=== PATIENT | female | born 1945 | race Asian ===

== ENCOUNTER → 2017-09-13 | Outpatient (CLI) | payer OTHER ==
[~2017-09-13] MED LIST: REGADENOSON 0.4 MG/5 ML SYRINGE ONE
== END | disposition home or self-care (01) ==
LOC: RAD 12:37
PROVIDERS: ATTEND Internal Medicine Cardiovascular Disease
DX: R06.02 Shortness of breath (principal)
CPT/HCPCS: 78452; 93017; A9502; J2785

== ENCOUNTER 2019-05-05 19:04 | Inpatient (IN) | payer OTHER ==
[~2019-05-05] VITALS: Ht 144.8 cm; Wt 60.5 kg
--- NOTE | 2019-05-05 19:44 | NUR ---
PT WENT TO [facility] IN [facility] X1 MONTH, PT WAS SENT HERE TO [facility] FOR POSSIBLE DVT. PER PT, NO TESTING WAS DONE. RASHES ON BILAT HEALS THAT ARE ITCHY AND SHE SCRATCHES THEM AND BECOMES OPEN AREAS. COVERED WOUNDS, DRESSING CDI. CONNECTED TO ALL MONITORING. CALL LIGHT IN REACH. DAUGHTER AT BEDSIDE.
--- NOTE | 2019-05-05 21:25 | NUR ---
ALL RESULTS ARE BACK AT THIS TIME. CHART UP FOR RECHECK.
[2019-05-05] MEDS ORDERED: hydrOXyzine 50MG TABLET ONE (21:50)
[2019-05-05] MEDS ORDERED: ONDANSETRON 2MG/ML, 2ML IVPush ONE (21:50)
[2019-05-05] MEDS ORDERED: ONDANSETRON 2MG/ML, 2ML ONE (21:51)
[2019-05-05] MEDS ORDERED: HYDROmorphone 1 MG/ML, 1ML VIAL ONE (21:51)
[2019-05-05] MEDS ORDERED: AMPICILLIN/SULBACTAM 3 GM in SODIUM CHLORIDE 0.9% 100 ML IV ONE (21:56)
--- NOTE | 2019-05-05 21:59 | NUR ---
PT MEDICATED PER EMAR, PT PLACED ON OXYGEN TO PREVENT HYPOXIA WITH PAIN MEDICINE ADMINISTRATION.
[2019-05-05] MEDS ORDERED: HYDROmorphone 1 MG/ML, 1ML INJ IV ONE (22:00)
[2019-05-05] MEDS ORDERED: hydrOXyzine 50MG TABLET PO ONE (22:00)
--- NOTE | 2019-05-05 22:13 | NUR ---
BLOOD CX DRAWN PRIOR TO ABX START. ABX ADMIN PER SEP.
--- NOTE | 2019-05-05 22:16 | NUR ---
BLOOD CULTURES X 2 DRAWN BY THIS RN. VENOUS LACTATE REQUESTED FROM PROVIDER. PROVIDER AGGREABLE TO THIS. PT HAD PERIPHERAL STICKS X 2 AT THIS TIME. PT REPORTING PAIN ONLY SLIGHTLY BETTER. ABX TO BE STARTED AFTER CULTURES.
[2019-05-05 22:26] LABS: MEAN CORPUSCULAR HEMOGLOBIN 39.6 pg (27.0-34.8); MEAN CORPUSCULAR HGB CONC 33.2 g/dL (32.4-35.8); MEAN PLATELET VOLUME 6.7 fL (7.4-10.4); PLATELET COUNT 465 x10^3/uL (130-400); RED BLOOD COUNT 3.34 x10^6/uL (3.82-5.3); RED CELL DISTRIBUTION WIDTH 13.9 % (9.6-15.2)
--- NOTE | 2019-05-05 22:27 | NUR ---
REPORT GIVEN TO ARNOLD CHÁVEZ
[2019-05-05 22:36] LABS: ALBUMIN 3.3 g/dL (3.4-5.0); ANION GAP 5 mmol/L (5-15); CALCIUM 9.5 mg/dL (8.5-10.1); CHLORIDE 104 mmol/L (98-107)
[2019-05-05 22:39] LABS: ALANINE AMINOTRANSFERASE 30 U/L (12-78); ALKALINE PHOSPHATASE 56 U/L (45-117); BILIRUBIN,TOTAL 0.6 mg/dL (0.2-1.0); CREATININE 0.95 mg/dL (0.55-1.02); TOTAL PROTEIN 7.8 g/dL (6.4-8.2)
[2019-05-05 22:50] VITALS: BP 125/74
[2019-05-05 22:56] LABS: BASOPHILS # (AUTO) 0.04 x10^3/uL (0-0.1); BASOPHILS % (AUTO) 1 % (0-1); EOSINOPHILS # (AUTO) 0.97 x10^3/uL (0-0.4); EOSINOPHILS % (AUTO) 11 % (1-7); LYMPHOCYTES # (AUTO) 1.33 x10^3/uL (1-3.4); LYMPHOCYTES % (AUTO) 15 % (22-44); MD SCAN; MONOCYTES # (AUTO) 0.65 x10^3/uL (0.2-0.8); MONOCYTES % (AUTO) 8 % (2-9); NEUTROPHILS # (AUTO) 5.72 x10^3/uL (1.8-6.8); NEUTROPHILS % (AUTO) 66 % (42-75)
[2019-05-05] MEDS ORDERED: ALEN70TA6 PO (23:56)
[2019-05-05] MEDS ORDERED: AMLO5TAB4 PO (23:56)
[2019-05-05] MEDS ORDERED: CLOP75TA52 PO (23:56)
[2019-05-05] MEDS ORDERED: ROSU5TAB12 PO (23:56)
[2019-05-05] MEDS ORDERED: HYDR500C PO (23:56)
[2019-05-06] MEDS ORDERED: DOCUSATE 100 MG CAPSULE PO PRN (00:30)
[2019-05-06] MEDS ORDERED: ONDANSETRON ODT 4 MG PO PRN (00:30)
[2019-05-06] MEDS ORDERED: LIDODERM 5% PATCH TD PRN (00:30)
[2019-05-06] MEDS ORDERED: morphine SULFATE 10 MG/ML, 1ML IVPush PRN (00:30)
[2019-05-06] MEDS ORDERED: GABAPENTIN 300 MG CAPSULE PO PRN (00:30)
[2019-05-06] MEDS ORDERED: ENALAPRILAT 1.25 MG/ML, 2ML IVPush PRN (00:30)
[2019-05-06] MEDS ORDERED: MELATONIN 3 MG TABLET PO PRN (00:30)
[2019-05-06 01:09] VITALS: BP 127/73
[2019-05-06] MEDS: ENOXAPARIN 40 MG/0.4 ML SQ SCH (01:12)
[2019-05-06] MEDS ORDERED: DIPHENHYDRAMINE 50 MG/ML, 1ML IVPush ONE ×2 (04:30→09:00)
[2019-05-06] MEDS: AMPICILLIN/SULBACTAM 3 GM in SODIUM CHLORIDE 0.9% 100 ML IV SCH ×4 (05:05→23:22)
[2019-05-06 07:07] VITALS: BP 116/71
[2019-05-06] MEDS ORDERED: CHOL200059 PO (11:15)
[2019-05-06 13:29] VITALS: BP 109/68
[2019-05-06] MEDS: GABAPENTIN 300 MG CAPSULE PO PRN (16:56)
[2019-05-06] MEDS: ATORVASTATIN 20 MG TABLET PO SCH (20:12)
[2019-05-06 20:18] VITALS: BP 125/74
[2019-05-07] MEDS: GABAPENTIN 300 MG CAPSULE PO PRN ×3 (01:08→16:24)
[2019-05-07] MEDS: ENOXAPARIN 40 MG/0.4 ML SQ SCH (01:09)
[2019-05-07 01:36] VITALS: BP 116/68
[2019-05-07] MEDS: AMPICILLIN/SULBACTAM 3 GM in SODIUM CHLORIDE 0.9% 100 ML IV SCH ×4 (05:24→23:17)
[2019-05-07 07:08] LABS: MEAN CORPUSCULAR HEMOGLOBIN 38.9 pg (27.0-34.8); MEAN CORPUSCULAR HGB CONC 32.5 g/dL (32.4-35.8); MEAN CORPUSCULAR VOLUME 119.7 fL (80-100); MEAN PLATELET VOLUME 6.3 fL (7.4-10.4); PLATELET COUNT 482 x10^3/uL (130-400); RED BLOOD COUNT 3.33 x10^6/uL (3.82-5.3); RED CELL DISTRIBUTION WIDTH 13.8 % (9.6-15.2)
[2019-05-07 07:17] LABS: ANION GAP 4 mmol/L (5-15); CALCIUM 8.3 mg/dL (8.5-10.1); CHLORIDE 107 mmol/L (98-107); CREATININE 0.98 mg/dL (0.55-1.02)
[2019-05-07 07:38] LABS: MD YES
[2019-05-07 07:40] LABS: BASOS#(MANUAL) 0.17 x10^3/uL (0-0.1); BASOS% (MANUAL) 2 % (0-1); EOS#(MANUAL) 1.62 x10^3/uL (0.0-0.4); EOS% (MANUAL) 19 % (1-7); LYMPH#(MANUAL) 0.68 x10^3/uL (1-3.4); LYMPHS% (MANUAL) 8 % (22-44); MONOS#(MANUAL) 0.51 x10^3/uL (0.3-2.7); MONOS% (MANUAL) 6 % (2-9); SEG#(MANUAL) 5.53 x10^3/uL (1.8-6.8); SEGS% (MANUAL) 65 % (42-75)
[2019-05-07 07:41] LABS: <PLATELET ESTIMATE> INCREASED; <PLT MORPHOLOGY> NORMAL PLT MORPH
[2019-05-07 08:00] VITALS: BP 121/79
[2019-05-07] MEDS ORDERED: GADOTERATE 7.5 MMOL/15 ML SYR ONE (08:00)
[2019-05-07] MEDS: CHOLECALCIFEROL 1,000 UNIT TABLET PO SCH (09:54)
[2019-05-07] MEDS: CLOPIDOGREL 75 MG TABLET PO SCH (09:54)
[2019-05-07] MEDS: AMLODIPINE 5 MG TABLET PO SCH (09:54)
[2019-05-07] MEDS: HYDROXYUREA 500 MG CAPSULE PO SCH (10:00)
[2019-05-07 13:52] VITALS: BP 117/77
[2019-05-07 14:12] VITALS: BP 122/69
[2019-05-07] MEDS: ACETAMINOPHEN 325 MG TABLET PO PRN (14:26)
[2019-05-07 19:27] VITALS: BP 130/75
[2019-05-07] MEDS: KETOROLAC 30 MG/1 ML IVPush PRN (20:40)
[2019-05-07] MEDS: ATORVASTATIN 20 MG TABLET PO SCH (20:52)
[2019-05-08 00:48] VITALS: BP 117/73
[2019-05-08] MEDS: ENOXAPARIN 40 MG/0.4 ML SQ SCH (01:10)
[2019-05-08] MEDS: GABAPENTIN 300 MG CAPSULE PO PRN ×3 (01:16→18:08)
[2019-05-08 04:47] LABS: ANION GAP 3 mmol/L (5-15); CALCIUM 7.9 mg/dL (8.5-10.1); CHLORIDE 110 mmol/L (98-107); CREATININE 1.28 mg/dL (0.55-1.02)
[2019-05-08 04:59] LABS: MEAN CORPUSCULAR HEMOGLOBIN 38.8 pg (27.0-34.8); MEAN CORPUSCULAR HGB CONC 32.3 g/dL (32.4-35.8); MEAN CORPUSCULAR VOLUME 120.2 fL (80-100); MEAN PLATELET VOLUME 6.7 fL (7.4-10.4); PLATELET COUNT 457 x10^3/uL (130-400); RED BLOOD COUNT 3.24 x10^6/uL (3.82-5.3); RED CELL DISTRIBUTION WIDTH 13.6 % (9.6-15.2)
[2019-05-08] MEDS: AMPICILLIN/SULBACTAM 3 GM in SODIUM CHLORIDE 0.9% 100 ML IV SCH ×3 (05:20→23:06)
[2019-05-08 05:59] LABS: BASOPHILS # (AUTO) 0.05 x10^3/uL (0-0.1); BASOPHILS % (AUTO) 1 % (0-1); EOSINOPHILS # (AUTO) 1.32 x10^3/uL (0-0.4); EOSINOPHILS % (AUTO) 18 % (1-7); LYMPHOCYTES # (AUTO) 1.12 x10^3/uL (1-3.4); LYMPHOCYTES % (AUTO) 16 % (22-44); MD SCAN; MONOCYTES # (AUTO) 0.54 x10^3/uL (0.2-0.8); MONOCYTES % (AUTO) 8 % (2-9); NEUTROPHILS # (AUTO) 4.17 x10^3/uL (1.8-6.8); NEUTROPHILS % (AUTO) 58 % (42-75)
[2019-05-08 07:37] VITALS: BP 115/52
[2019-05-08] MEDS: HYDROXYUREA 500 MG CAPSULE PO SCH (09:23)
[2019-05-08] MEDS: HYDROCORTISONE CRM 1%, 30GM TP PRN ×3 (09:24→23:23)
[2019-05-08] MEDS: CHOLECALCIFEROL 1,000 UNIT TABLET PO SCH (09:24)
[2019-05-08] MEDS: CLOPIDOGREL 75 MG TABLET PO SCH (09:24)
[2019-05-08] MEDS: DIPHENHYDRAMINE/ZINC CRM 2%, 30GM TP PRN ×3 (09:24→23:23)
[2019-05-08] MEDS: AMLODIPINE 5 MG TABLET PO SCH (09:24)
[2019-05-08 13:02] VITALS: BP 119/45
[2019-05-08] MEDS: LINEZOLID PMX 600MG/300ML 300 ML IV SCH (18:08)
[2019-05-08 18:46] VITALS: BP 120/64
[2019-05-08] MEDS: ACETAMINOPHEN 325 MG TABLET PO PRN (20:28)
[2019-05-08] MEDS: ATORVASTATIN 20 MG TABLET PO SCH (20:28)
[2019-05-09 01:11] VITALS: BP 127/76
[2019-05-09] MEDS: GABAPENTIN 300 MG CAPSULE PO PRN ×2 (01:13→17:33)
[2019-05-09] MEDS: ENOXAPARIN 30 MG/0.3 ML SQ SCH (01:15)
[2019-05-09] MEDS: LINEZOLID PMX 600MG/300ML 300 ML IV SCH (06:02)
[2019-05-09] MEDS: HYDROCORTISONE CRM 1%, 30GM TP PRN ×2 (06:08→20:25)
[2019-05-09] MEDS: DIPHENHYDRAMINE/ZINC CRM 2%, 30GM TP PRN ×2 (06:08→20:25)
[2019-05-09 07:19] VITALS: BP 136/82
[2019-05-09] MEDS: CLOPIDOGREL 75 MG TABLET PO SCH (08:08)
[2019-05-09] MEDS: AMLODIPINE 5 MG TABLET PO SCH (08:08)
[2019-05-09] MEDS: CHOLECALCIFEROL 1,000 UNIT TABLET PO SCH (08:08)
[2019-05-09] MEDS: HYDROXYUREA 500 MG CAPSULE PO SCH (08:08)
[2019-05-09 10:08] LABS: MEAN CORPUSCULAR HEMOGLOBIN 39.1 pg (27.0-34.8); MEAN CORPUSCULAR HGB CONC 32.6 g/dL (32.4-35.8); MEAN CORPUSCULAR VOLUME 119.7 fL (80-100); MEAN PLATELET VOLUME 6.4 fL (7.4-10.4); PLATELET COUNT 506 x10^3/uL (130-400); RED BLOOD COUNT 3.34 x10^6/uL (3.82-5.3); RED CELL DISTRIBUTION WIDTH 13.7 % (9.6-15.2)
[2019-05-09 10:20] LABS: ANION GAP 5 mmol/L (5-15); CALCIUM 8.5 mg/dL (8.5-10.1); CHLORIDE 107 mmol/L (98-107); CREATININE 1.02 mg/dL (0.55-1.02)
[2019-05-09 10:25] LABS: BASOPHILS # (AUTO) 0.01 x10^3/uL (0-0.1); BASOPHILS % (AUTO) 0 % (0-1); EOSINOPHILS # (AUTO) 1.15 x10^3/uL (0-0.4); EOSINOPHILS % (AUTO) 16 % (1-7); LYMPHOCYTES # (AUTO) 0.82 x10^3/uL (1-3.4); LYMPHOCYTES % (AUTO) 11 % (22-44); MD SCAN; MONOCYTES # (AUTO) 0.45 x10^3/uL (0.2-0.8); MONOCYTES % (AUTO) 6 % (2-9); NEUTROPHILS # (AUTO) 4.79 x10^3/uL (1.8-6.8); NEUTROPHILS % (AUTO) 66 % (42-75)
[2019-05-09] MEDS: AMPICILLIN/SULBACTAM 3 GM in SODIUM CHLORIDE 0.9% 100 ML IV SCH ×2 (12:42→20:25)
[2019-05-09 13:06] VITALS: BP 113/63
[2019-05-09] MEDS ORDERED: FUROSEMIDE 40 MG/4 ML IV ONE (17:00)
[2019-05-09 20:12] VITALS: BP 122/72
[2019-05-09] MEDS: ATORVASTATIN 20 MG TABLET PO SCH (20:25)
[2019-05-09] MEDS ORDERED: LINEZOLID 600 MG TABLET PO SCH (21:00)
[2019-05-10 01:07] VITALS: BP 138/72
[2019-05-10] MEDS: AMPICILLIN/SULBACTAM 3 GM in SODIUM CHLORIDE 0.9% 100 ML IV SCH ×3 (04:02→20:25)
[2019-05-10] MEDS: HYDROCORTISONE CRM 1%, 30GM TP PRN ×2 (05:02→20:26)
[2019-05-10] MEDS: KETOROLAC 30 MG/1 ML IVPush PRN (05:08)
[2019-05-10 08:04] VITALS: BP 111/67
[2019-05-10] MEDS: CLOPIDOGREL 75 MG TABLET PO SCH (08:07)
[2019-05-10] MEDS: HYDROXYUREA 500 MG CAPSULE PO SCH (08:07)
[2019-05-10] MEDS: ENOXAPARIN 30 MG/0.3 ML SQ SCH (08:08)
[2019-05-10] MEDS: AMLODIPINE 5 MG TABLET PO SCH (08:08)
[2019-05-10] MEDS: CHOLECALCIFEROL 1,000 UNIT TABLET PO SCH (08:08)
[2019-05-10 12:53] VITALS: BP 101/62
[2019-05-10 18:57] VITALS: BP 129/71
[2019-05-10] MEDS: ATORVASTATIN 20 MG TABLET PO SCH (20:25)
[2019-05-10] MEDS: DIPHENHYDRAMINE/ZINC CRM 2%, 30GM TP PRN (20:26)
[2019-05-11 01:53] VITALS: BP 104/66
[2019-05-11] MEDS: AMPICILLIN/SULBACTAM 3 GM in SODIUM CHLORIDE 0.9% 100 ML IV SCH (04:19)
[2019-05-11 04:47] LABS: MEAN CORPUSCULAR HEMOGLOBIN 39.4 pg (27.0-34.8); MEAN CORPUSCULAR HGB CONC 32.8 g/dL (32.4-35.8); MEAN CORPUSCULAR VOLUME 120.2 fL (80-100); MEAN PLATELET VOLUME 6.9 fL (7.4-10.4); PLATELET COUNT 483 x10^3/uL (130-400); RED BLOOD COUNT 3.21 x10^6/uL (3.82-5.3); RED CELL DISTRIBUTION WIDTH 13.9 % (9.6-15.2)
[2019-05-11 04:58] LABS: ANION GAP 4 mmol/L (5-15); CALCIUM 8.3 mg/dL (8.5-10.1); CHLORIDE 108 mmol/L (98-107)
[2019-05-11 05:00] LABS: CREATININE 1.03 mg/dL (0.55-1.02)
[2019-05-11 06:00] LABS: BASOPHILS # (AUTO) 0.04 x10^3/uL (0-0.1); BASOPHILS % (AUTO) 1 % (0-1); EOSINOPHILS # (AUTO) 1.23 x10^3/uL (0-0.4); EOSINOPHILS % (AUTO) 18 % (1-7); LYMPHOCYTES # (AUTO) 1.09 x10^3/uL (1-3.4); LYMPHOCYTES % (AUTO) 16 % (22-44); MD SCAN; MONOCYTES # (AUTO) 0.59 x10^3/uL (0.2-0.8); MONOCYTES % (AUTO) 9 % (2-9); NEUTROPHILS # (AUTO) 3.73 x10^3/uL (1.8-6.8); NEUTROPHILS % (AUTO) 56 % (42-75)
[2019-05-11] MEDS ORDERED: ENOXAPARIN 40 MG/0.4 ML SQ SCH (06:00)
[2019-05-11 07:16] VITALS: BP 111/66
[2019-05-11] MEDS: HYDROXYUREA 500 MG CAPSULE PO SCH (08:52)
[2019-05-11] MEDS: AMLODIPINE 5 MG TABLET PO SCH (08:55)
[2019-05-11] MEDS: CHOLECALCIFEROL 1,000 UNIT TABLET PO SCH (08:55)
[2019-05-11] MEDS: CLOPIDOGREL 75 MG TABLET PO SCH (08:55)
[2019-05-11] MEDS: HYDROCORTISONE CRM 1%, 30GM TP PRN (08:56)
[2019-05-11] MEDS: DIPHENHYDRAMINE/ZINC CRM 2%, 30GM TP PRN (08:56)
[2019-05-11 12:59] VITALS: BP 123/75
[2019-05-11] MEDS: GABAPENTIN 300 MG CAPSULE PO PRN (16:51)
[2019-05-11] MEDS ORDERED: GABA300C10 PO (17:08)
== END 2019-05-11 16:50 | disposition home or self-care (01) | DRG 300 ==
LOC: ED 22:13 → EDIP 22:14 → 3N 22:45 → 4NW 05-07 14:01
PROVIDERS: ADMIT Internal Medicine; ATTEND Internal Medicine
DX: I73.9 Peripheral vascular disease, unspecified (principal); L97.929 Non-pressure chronic ulcer of unspecified part of left lower leg with unspecified severity; L97.919 Non-pressure chronic ulcer of unspecified part of right lower leg with unspecified severity; L03.115 Cellulitis of right lower limb; I82.531 Chronic embolism and thrombosis of right popliteal vein; D75.1 Secondary polycythemia; D75.89 Other specified diseases of blood and blood-forming organs; R00.0 Tachycardia, unspecified; M81.0 Age-related osteoporosis without current pathological fracture; I10 Essential (primary) hypertension; Z82.3 Family history of stroke; Z87.442 Personal history of urinary calculi; Z88.8 Allergy status to other drugs, medicaments and biological substances
CPT/HCPCS: 36415; 80048; 80053; 83605; 84145; 85025; 87040; 87070; 87077; 87186; 87205; 93005; 93922; 93970; 99285; G0378; J0295; J1170; J1650; J1885; J1940; J2020; J2405; A9575; J1200

== ENCOUNTER 2019-08-18 08:50 | Outpatient (CLI) | payer OTHER ==
[~2019-08-18 08:50] MED LIST changes: +ALEN70TA6 PO; +AMLO5TAB4 PO; +CHOL200059 PO; +CLOP75TA52 PO; +GABA300C10 PO; +HYDR500C PO; -REGADENOSON 0.4 MG/5 ML SYRINGE ONE; +ROSU5TAB12 PO
== END 2019-08-18 23:59 | disposition home or self-care (01) ==
LOC: WOUND 08:50
PROVIDERS: ATTEND Internal Medicine
DX: I87.333 Chronic venous hypertension (idiopathic) with ulcer and inflammation of bilateral lower extremity (principal); L97.222 Non-pressure chronic ulcer of left calf with fat layer exposed; L97.212 Non-pressure chronic ulcer of right calf with fat layer exposed; I73.9 Peripheral vascular disease, unspecified; I10 Essential (primary) hypertension; E78.5 Hyperlipidemia, unspecified
CPT/HCPCS: 99215

== ENCOUNTER → 2019-09-01 | Outpatient (CLI) | payer OTHER | END | disposition home or self-care (01) | LOC: WOUND 13:18 | PROVIDERS: ATTEND Internal Medicine | DX: I87.333 Chronic venous hypertension (idiopathic) with ulcer and inflammation of bilateral lower extremity (principal); L97.222 Non-pressure chronic ulcer of left calf with fat layer exposed; L97.212 Non-pressure chronic ulcer of right calf with fat layer exposed; I73.9 Peripheral vascular disease, unspecified; I10 Essential (primary) hypertension; E78.5 Hyperlipidemia, unspecified | CPT/HCPCS: 97597 ==

== ENCOUNTER → 2019-09-22 | Outpatient (CLI) | payer OTHER | END | disposition home or self-care (01) | LOC: WOUND 10:20 | PROVIDERS: ATTEND Internal Medicine | DX: I87.333 Chronic venous hypertension (idiopathic) with ulcer and inflammation of bilateral lower extremity (principal); L97.222 Non-pressure chronic ulcer of left calf with fat layer exposed; L97.212 Non-pressure chronic ulcer of right calf with fat layer exposed; I73.9 Peripheral vascular disease, unspecified; I10 Essential (primary) hypertension; E78.5 Hyperlipidemia, unspecified | CPT/HCPCS: 99214 ==

== ENCOUNTER → 2020-04-01 | Outpatient (CLI) | payer OTHER ==
[2020-04-01 09:17] LABS: ALANINE AMINOTRANSFERASE 42 U/L (12-78); ALBUMIN 3.3 g/dL (3.4-5.0); ANION GAP 4 mmol/L (5-15); CHLORIDE 103 mmol/L (98-107)
[2020-04-01 09:20] LABS: ALKALINE PHOSPHATASE 52 U/L (45-117); BILIRUBIN,TOTAL 0.7 mg/dL (0.2-1.0); CREATININE 0.94 mg/dL (0.55-1.02); TOTAL PROTEIN 7.6 g/dL (6.4-8.2)
[2020-04-01 09:42] LABS: MEAN CORPUSCULAR HEMOGLOBIN 39.8 pg (27.0-34.8); MEAN CORPUSCULAR HGB CONC 32.8 g/dL (32.4-35.8); MEAN CORPUSCULAR VOLUME 121.1 fL (80-100); MEAN PLATELET VOLUME 6.7 fL (7.4-10.4); PLATELET COUNT 349 x10^3/uL (130-400); RED BLOOD COUNT 3.57 x10^6/uL (3.82-5.3); RED CELL DISTRIBUTION WIDTH 17.1 % (9.6-15.2)
[2020-04-01 09:44] LABS: BASOPHILS # (AUTO) 0.03 x10^3/uL (0-0.1); BASOPHILS % (AUTO) 1 % (0-1); EOSINOPHILS # (AUTO) 0.21 x10^3/uL (0-0.4); EOSINOPHILS % (AUTO) 4 % (1-7); LYMPHOCYTES # (AUTO) 1.12 x10^3/uL (1-3.4); LYMPHOCYTES % (AUTO) 21 % (22-44); MD SCAN; MONOCYTES # (AUTO) 0.35 x10^3/uL (0.2-0.8); MONOCYTES % (AUTO) 7 % (2-9); NEUTROPHILS # (AUTO) 3.71 x10^3/uL (1.8-6.8); NEUTROPHILS % (AUTO) 69 % (42-75)
[2020-04-02 10:58] LABS: QUANTIFERON TB Ag1-NIL 0.49 (0.000-0.000)
== END | disposition home or self-care (01) ==
LOC: CFH 08:37
PROVIDERS: ATTEND Internal Medicine Hematology & Oncology
DX: D75.1 Secondary polycythemia (principal); D72.829 Elevated white blood cell count, unspecified; D47.3 Essential (hemorrhagic) thrombocythemia; Z79.01 Long term (current) use of anticoagulants; Z79.899 Other long term (current) drug therapy
CPT/HCPCS: 36415; 80053; 85025; 86480